=== PATIENT | female | born 1945 | race Caucasian/White ===

== ENCOUNTER → 2019-06-01 12:33 | Outpatient (CLI) | payer MEDICARE, SELFPAY ==
--- NOTE | 2019-06-01 12:37 | RAD_ITS ---
STUDY: SWALLOWING STUDY REASON FOR EXAM: Female, 73 years old. Dysphagia TECHNIQUE: The examination was performed with Speech Pathology in attendance. Under fluoroscopic observation, the patient ingested thin barium, thick barium, barium pudding, and barium coated cracker. FLUOROSCOPY TIME: 1:31 minutes/seconds RADIOLOGIST INVOLVEMENT: Radiologist was present and providing direct supervision. COMPARISON: None. FINDINGS: The following was observed during swallowing of the various mixtures of barium: There is thickening of the cricopharyngeus muscle. Thin Barium: There was no evidence of aspiration or laryngeal penetration. Barium Pudding: There was no evidence of aspiration or laryngeal penetration. Barium Coated Cracker: There was no evidence of aspiration or laryngeal penetration. RAD/Swallowing Function w/Video IMPRESSION: Normal tailored barium swallow study. No evidence of increased risk for aspiration. Thickening of the cricopharyngeus muscle. The swallow study findings were discussed with the patient by the speech pathologist at the conclusion of the examination. Please see speech pathology report for more information and recommendations. Electronically Signed: Kong Fischer, at 13:50 EST , Service support ,
--- NOTE | 2019-06-01 12:50 | SP.MBSS_ITS ---
PRIMARY / SECONDARY DIAGNOSIS: dysphagia (R13.10) REFERRING PHYSICIAN: Yvonne Florentino CNP CURRENT DIET: regular textures, thin liquids DENTITION: WFL MENTAL STATUS: WNL RESPIRATORY STATUS: O2 via room air REASON FOR REFERRAL: The Patient is a 73 year old female referred for a modified barium swallow (MBS) study to objectively assess the Patients oropharyngeal swallow function under fluoroscopy secondary to reported intermittent globus sensation with solid textures occurring over the past few months. MEDICAL HISTORY: Rheumatoid arthritis. No further medical history / complications reported. PREVIOUS MODIFIED BARIUM SWALLOW STUDY: None ASSESSMENT PARAMETERS: The Patient participated in a Modified Barium Swallow (MBS) study on 06/01/2019. Dr. Fischer was the radiologist present for this evaluation. This study was recorded in the lateral view and images were sent to PACs for storage. Scoring was completed through each trial using the 8-point Penetration-Aspiration Scale (PAS) and the Videofluoroscopic Scale Score (VSS), and summarized via the Modified Barium Swallow Impairment Profile (MBSImP), the Bolus Residue Scale (BRS), and the NIH Swallowing Safety Scale (NIH-SSS), with severity scoring through the Dysphagia Severity Rating Scale (DSRS) and the Swallowing Performance Scale (SPS), and recommended diet textures through the International Dysphagia Diet Standardisation Initiative (IDDSI). RESULTS OF THE EVALUATION: The Patient presents with mastication and deglutition abilities found to be grossly within functional limits (DSRS: 1; SPS: 2) OBJECTIVE ASSESSMENT OF SWALLOW FUNCTION (QUANTITATIVE ? PER TRIAL): PENETRATION / ASPIRATION SCALE (ALLEN): 1 = does not enter airway 2 = enters airway/above vocal folds/ejected 3 = enters airway/above vocal folds/not ejected 4 = enters airway/contacts vocal folds/ejected 5 = enters airway/contacts vocal folds/not ejected 6 = enters airway/below vocal folds/ejected 7 = enters airway/below vocal folds/not ejected despite effort 8 = enters airway/below vocal folds/no effort PENETRATION / ASPIRATION SCALE (SCORE): Thin liquids via cup (single sip): 1 Thin liquids via cup (single sip): 1 Thin liquids via cup (single sip): 1 Thin liquids via straw (single sip): 1 Thin liquids via straw (sequential swallows): 1 Pudding via spoon: 1 Regular textured cookie: 1 Thin liquids via straw (single sip): 1 OBJECTIVE ASSESSMENT OF SWALLOW FUNCTION (QUANTITATIVE ? AGGREGATE): MODIFIED BARIUM SWALLOW IMPAIRMENT PROFILE (MBSImP) LABIAL SEAL: 0 (of 4) no labial escape TONGUE CONTROL: 0 (of 3) cohesive bolus BOLUS PREPARATION / MASTICATION: 0 (of 3) timely and efficient BOLUS TRANSPORT / LINGUAL MOTION: 3 (of 4) disorganized motion ORAL RESIDUE: 2 (of 4) residue collection on oral structures INITIATION OF PHARYNGEAL SWALLOW: 0 (of 4) posterior angle of ramus SOFT PALATE ELEVATION: 0 (of 4) no bolus between soft palate & pharyngeal wall LARYNGEAL ELEVATION: 1 (of 3) partial superior movement / approximation ANTERIOR HYOID EXCURSION: 1 (of 2) partial movement EPIGLOTTIC MOVEMENT: 0 (of 2) complete inversion LARYNGEAL VESTIBULE CLOSURE: 0 (of 2) complete closure PHARYNGEAL STRIPPING WAVE: 1 (of 2) present / diminished PE SEGMENT OPENIN (of 3) partial distension / duration TONGUE BASE RETRACTION: 2 (of 4) narrow column of contrast PHARYNGEAL RESIDUE: 2 (of 4) collection of residue ESOPHAGEAL BOLUS CLEARANCE: could not view NIH SWALLOWING SAFETY SCALE (NIH-SSS): RESIDUE IN THE VALLECULA: 1 (present) PENETRATION INTO VESTIBULE FROM HYPOPHARYNX: 0 (absent) RESIDUE IN THE PYRIFORM: 0 (absent) BACKUP PENETRATION FROM PYRIFORM INTO LARYNGEAL VESTIBULE: 0 (absent) ENTRY INTO THE UPPER ESOPHAGUS: 0 (100% entry) ASPIRATION: 0 (absent) BOLUS RESIDUE SCALE (BRS): 2 (of 6) residue in valleculae OBJECTIVE ASSESSMENT OF SWALLOW FUNCTION (SEVERITY GRADING): DYSPHAGIA SEVERITY RATING SCALE (DSRS): 1 (within functional limits) SWALLOWING PERFORMANCE SCALE (SPS): 2 (within functional limits) OBJECTIVE ASSESSMENT OF SWALLOW FUNCTION (QUALITATIVE): ORAL PREPARATORY PHASE: competent bolus manipulation without fragmented swallowing (piecemeal deglutition); sufficient anterior oral containment during oral manipulation; preserved management of breathing / bolus formation without disrupted E ? S ? E pattern ORAL TRANSITIONAL PHASE: somewhat initial discoordinated lingual movements with pudding textures likely associated with persistent xerostomia, otherwise sufficient bolus transportation; sufficient oral clearance; sufficient oral containment across textures; no presence of premature posterior bolus loss. PHARYNGEAL PHASE: inconsistent, though overall appropriate hyolaryngeal excursion and laryngeal vestibule closure / pressure; no signs of pharyngeal dysmotility; no signs of velopharyngeal impairments; no penetration / aspiration throughout trials. ESOPHAGEAL PHASE: no obvious esophageal phase abnormalities observed. 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 RESPONSE TO STRATEGIES: deficits managed successfully with execution of a liquid chaser. INTERVENTION RECOMMENDATIONS AND CONSIDERATIONS: The Patient presents with mastication and deglutition abilities found to be grossly within functional limits. No further skilled speech-language intervention is warranted at this time. POST ASSESSMENT EDUCATION: Results and recommendations were discussed with the Patient immediately following MBS completion, with the Patient verbalizing understanding and agreement with all recommendations and education provided. DIET TEXTURE RECOMMENDATIONS: Will recommend a regular textured (IDDSI: 7), thin liquid diet (IDDSI: 0) diet RECOMMENDED COMPENSATORY STRATEGIES: Consider cutting tougher textures into bite sized pieces, liquid chaser at reasonable intervals, seated upright at 90 degrees during PO intake, remain upright for 30-60 minutes post meal (GERD precaution) IMAGE COUNT: [id number] Camron Watkins M.A., CCC-BATCH OR CONTINUOUS STILL OPERATOR, CBIS MBSImP Certified, LSVT Certified [facility] Speech-Language Pathology Department [email or web address]
== END ==
DX: R13.10 Dysphagia, unspecified (principal)
CPT/HCPCS: 74230; 92611

== ENCOUNTER → 2022-07-11 | Outpatient (CLI) | payer MEDICARE, SELFPAY ==
--- NOTE | 2022-07-11 | VUL_PTH ---
PATIENT: NA ENRIQUEZ LOC: [facility] U#:[id number] AGE/SX: 76/F ROOM: RE07/11/[address]: Dr. Dimitri Bonilla MD : 1945 BED: DIS: 07/11/2022 SPEC #: [id number] RECD: 07/11/22 13:25 STATUS: MATTI DAO #: [id number] JERRY: 07/11/22 00:[address]: Dimitri Bonilla DEPT: SURGICAL PATHOLOGY RECD BY: Liz Winston Tissues: Vulva, NOS Procedures: Surgery Specimen Level IV HEADER OPERATION: Vulvar biopsy PRE-OP DIAGNOSIS: Vulvar plaque TISSUE SUBMITTED: Vulvar biopsy MICROSCOPIC DIAGNOSIS Vulvar biopsy: Minute fragments of squamous epithelium with extensive hyperkeratosis and parakeratosis. Negative for dysplasia/malignancy. See comment. JACEK:shawn 07/12/2022 COMMENT Subepithelial tissue is not seen. If there is high suspicion of dysplasia/malignancy, re-biopsy is suggested if clinically indicated. MICROSCOPIC DESCRIPTION Slides are reviewed. GROSS DESCRIPTION Received is one container labeled with the patient's name and not further designated. The specimen consists of three minute fragments of marie soft tissue measuring in aggregate 0.4 x 0.1 x 0.1 cm. The entire specimen is submitted in one cassette. / SJ:rg 07/11/2022 :5 [facility]: [id number]
== END | disposition home or self-care (01) ==
PROVIDERS: Visit Provider Obstetrics & Gynecology
DX: N89.8 Other specified noninflammatory disorders of vagina (principal)
CPT/HCPCS: 88305

== ENCOUNTER 2024-02-03 15:18 | Emergency (ER) | payer MEDICARE, SELFPAY ==
[2024-02-03 15:19] VITALS: BP 180/90; PULSE 80; RESP 16; TEMP 36.2; O2SAT 99; BMI 17.9
[2024-02-03 17:19] VITALS: BP 166/77; PULSE 80; RESP 17; O2SAT 98
--- NOTE | 2024-02-03 17:46 | EKG12_ITS ---
Test Reason : Blood Pressure : / mmHG Vent. Rate : 073 BPM Atrial Rate : 073 BPM P-R Int : 166 ms QRS Dur : 082 ms QT Int : 422 ms P-R-T Axes : 069 066 066 degrees QTc Int : 464 ms Normal sinus rhythm Nonspecific ST and T wave abnormality Abnormal ECG Confirmed by HARPAL WOLFE, LIA ([id number]), news videotape editor FREDDIE KAM ([id number]) on 02/04/2024 7:42:51 AM Referred By: Confirmed By:LIA ROWAN MD
--- NOTE | 2024-02-03 17:47 | EDS_ITS ---
HPI History of Present Illness Chief Complaint: Syncope Informant: patient Narrative Narrative: 78-year-old female presents because she has been feeling lightheaded today. She states she was standing in her kitchen gathering apples when she started feeling lightheaded, not vertiginous, and had no other symptoms. She felt like she was going to pass out so she went lay down and stayed there for about an hour. This helped. Upon getting up, she felt like she was tingling in all 4 extremities distally at the same time. That is better now, it is gone in her legs and she just feels it in her hands some, and still feels a little lightheaded but not near syncopal right now nor does she feel vertiginous. However she has had disequilibrium intermittently since July without sheldon vertiginous symptoms. When discussing this and lightheadedness she today she felt like she was going to faint and did not feel the disequilibrium. She had no other prodromal symptoms such as palpitations, chest discomfort, dyspnea, headache, focal neurologic symptoms. She also has had several surgeries this past year for right-sided retinal detachment. [facility] Medical History (Updated 02/03/24 @ 20:[address] Brooks Amado MD) Retinal detachment Hyperlipidemia Home Medications ?Medication ?Instructions ?Recorded ?Last Taken ?Type meclizine 25 mg tablet 25 mg PO Q8H PRN PRN Dizziness #20 02/03/24 Unknown Rx tabs Allergy/AdvReac Type Severity Reaction Status Date / Time amoxicillin Allergy Intermediate Rash Verified 02/03/24 15:21 Social History Smoking Status: Never smoker ROS ROS ED Constitutional Constitutional ED: Denies chills or fever(s) Eyes Eyes: Denies change in vision or eye pain ENT ENT ED: Reports as per HPI, disequillibrium and other Details: Hard of hearing uses hearing aids ; Denies rhinorrhea, sore throat or tinnitus Cardiovascular Cardiovascular: Reports lightheadedness; Denies chest pain, palpitations or syncope Respiratory/Chest Respiratory/Chest: Denies cough or dyspnea Gastrointestinal Gastrointestinal: Denies abdominal pain, diarrhea, nausea or vomiting Genitourinary Genitourinary ED: Denies dysuria or hematuria Musculoskeletal Musculoskeletal: Denies back pain or neck pain Integumentary Denies abscess or rash Neurologic Neurologic: Denies headache(s), paresthesias or weakness Psychiatric Psychiatric: Denies anxiety or suicidal thoughts EXAM Physical Exam Const Vital Signs: 02/03/24 15:19 02/03/24 17:19 02/03/24 18:14 Temperature 97.2 F L Temperature Source Temporal Pulse Rate 80 80 Respiratory Rate 16 17 Respiratory Effort Normal Respiratory Pattern Normal Blood Pressure 180/90 H 166/77 H Blood Pressure Mean 120 106 Pulse Ox 99 98 Oxygen Delivery Method Room Air Room Air 02/03/24 19:00 Temperature Temperature Source Pulse Rate 75 Respiratory Rate 18 Respiratory Effort Respiratory Pattern Blood Pressure 151/75 H Blood Pressure Mean 100 Pulse Ox 98 Oxygen Delivery Method Room Air Positive well nourished and well developed General Appearance ED: well developed and NAD HEENT Reports moist mucous membranes normocephalic and atraumatic Eyes EOMs intact bilaterally Eyes Narrative: Right pupil dilated anisocoria Neck full ROM and supple Resp normal respiratory effort and clear to auscultation bilaterally Cardio Rhythm: abnormal rhythm irregularly irregular (Without tachycardia) GI non-tender and non-distended Auscultation: normoactive bowel sounds Palpation: soft Back/Spine no CVA tenderness General Back: other FROM Extremity normal to inspection General Extremety ED: Negative for edema, pulses abnormal or tenderness General Extremity: Negative for edema or pulses abnormal Neuro oriented x3, CN's II-XII intact bilaterally and no sensory deficits noted Neuro Narrative: Able to stand without difficulty says she feels lightheaded Sensorium / Orientation: awake and alert Motor Exam: strength 5/5 throughout Psych mental status grossly normal Skin no rashes or lesions noted and no wounds MDM MDM MDM Narrative Medical decision making narrative: Patient has a log of blood pressures some of which are orthostatics, with a sitting blood pressure in the standing. With the log that she shows here, orthostatics are essentially negative every day that she has tested them. She states that her doctor did them in the office and they were abnormal but they were done for unknown reason, not feeling lightheaded or near syncopal like she presents today. She states she drink water this morning but has not had any thing since. Denies any recent illness to suggest dehydration. While working her up she was given some IV fluids here. Afterwards she was walking to the bathroom to give a urine sample she feels no near syncope or lightheadedness anymore. She states she still feels a little tilty suggesting she has the disequilibrium that she has had off-and-on chronically. She has never tried meclizine for that, I am going to give her a prescription for it she declines a dose here, and since the fluids helped her lightheadedness I suspect it was probably mild dehydration, she is advised to follow-up with her doctor as an outpatient she is comfortable with that plan. Lab Data Attestation: I reviewed the patient's lab results. Labs: Laboratory Results - last 24 hr 02/03/24 02/03/24 18:05 19:16 WBC 3.8 L RBC 4.14 L Hgb 13.1 Hct 41.0 MCV 99.0 MCH 31.6 MCHC 32.0 RDW Std Deviation 47.9 H RDW Coeff of Mode 13.2 Plt Count 223 MPV 9.7 Immature Gran % (Auto) 0.300 Neut % (Auto) 66.9 Lymph % (Auto) 20.3 [place] % (Auto) 10.2 H Eos % (Auto) 1.8 Baso % (Auto) 0.5 Absolute Neuts (auto) 2.6 Absolute Lymphs (auto) 0.78 L Nucleated RBC % 0 Sodium 137 Potassium 4.2 Chloride 103 Carbon Dioxide 28.0 Anion Gap 6 BUN 13 Creatinine 0.59 Estim Creat Clear Calc 40.59 Est GFR (MDRD) Af Amer 127 Est GFR (MDRD) Non-Af 105 BUN/Creatinine Ratio 22.1 H Glucose 117 H Calcium 10.0 Troponin I High Sens 6 Urine Color Yellow Urine Clarity Sl. Cloudy Urine pH 7.0 Ur Specific Scenic 1.005 Urine Protein Negative Urine Glucose (UA) Normal Urine Ketones Negative Urine Occult Blood 25 H Urine Nitrite Negative Urine Bilirubin Negative Urine Urobilinogen Normal Ur Leukocyte Esterase Negative Urine RBC 0-5 SEEN Urine WBC 0 SEEN Ur Squamous Epith Cells 0-5 SEEN Amorphous Sediment 1+ PHOS Urine Bacteria 0 SEEN Urine Mucus 0 SEEN Rhythm Strip Rhythm Strip: Sinus Rhythm Rate: 73 Ectopy: None EKG Initial EKG: Attestation: I personally reviewed and interpreted this EKG as follows: Interpretation: Sinus Rhythm, No Acute Injury Pattern and Non-Specific ST Changes Discharge Plan Triage Chief Complaint: Syncope ED Provider: Brooks Amado Dx/Rx/DC Orders Clinical Impression: Mild dehydration, Light-headedness, Dysequilibrium Instructions: ED Dizziness, Uncertain Cause, ED Near-Fainting, Uncertain Cause Prescriptions: New meclizine 25 mg tablet 25 mg PO Q8H PRN PRN (Reason: Dizziness) Qty: 20 0RF Primary Care Provider: Hospital,[facility] Referrals: Doctor,Your [Non-Staff] - As soon as possible Print Language: [place] Disposition Disposition: Home, Self Care
[2024-02-03] MEDS: 0.9% Normal Saline (1000mL) 1,000 ML 1000 ML IV (18:10)
[2024-02-03 18:13] LABS: Absolute Lymphocyte Count 0.78 X10^3/uL (0.83-4.51); Absolute Neutrophil Count 2.6 X10^3/uL (2.0-7.7); Basophil# 0.02 X10^3/uL; Basophil% 0.5 % (0-1); Eosinophil# 0.07 X10^3/uL; Eosinophils% 1.8 % (0-5); Hemoglobin 13.1 g/dL (12.0-15.0); Lymphocyte # 0.78 X10^3/ul (0.83-4.51); Lymphocyte % 20.3 % (19-41); Mean Corpuscular Hgb 31.6 pg (27.0-32.0); Mean Platelet Vol. 9.7 fl (6.2-12.0); Monocyte# 0.39 X10^3/uL; Monocyte% 10.2 % (0-10); NRBC Flagged by Analyzer 0 % (0-5); Neutrophil # 2.57 X10^3/uL (2.7-7.7); Neutrophil % 66.9 % (47-70); Platelet Count 223 K/mm3 (150-450); RBC Distribution Width CV 13.2 % (11.6-14.6); RBC Distribution Width SD 47.9 fl (35.1-43.9); Red Blood Count 4.14 M/mm3 (4.2-5.4); White Blood Count 3.8 K/mm3 (4.4-11.0)
[2024-02-03 18:55] LABS: Anion Gap 6 (5-15); BUN 13 mg/dL (7-18); BUN/Creat Ratio 22.1 RATIO (10-20); Chloride 103 mmol/L (98-107); Creatinine, Serum 0.59 mg/dL (0.55-1.02); EST Glomerular Filtration Rate 105 mL/min (>60); Est Glom Filt Rate - Afr Amer 127 mL/min (>60); Estimated Creatinine Clearance 40.59 ml/min; Glucose 117 mg/dL (74-106); Potassium 4.2 mmol/L (3.5-5.1); Sodium Level 137 mmol/L (136-145); Troponin-I HS 6 pg/mL (3.0-54.0)
[2024-02-03 19:00] VITALS: BP 151/75; PULSE 75; RESP 18; O2SAT 98
[2024-02-03 19:26] LABS: Bacteria 0 SEEN /hpf (None Seen); Mucous, Urine 0 SEEN /hpf (<or=2+); White Blood Cells 0 SEEN /hpf (0-5)
[2024-02-03 19:42] LABS: Color, Urine Yellow (Yellow); Glucose, Dipstick Normal (Normal); Ketone-Dipstick Negative (Negative); Leukocyte Esterase-Dipstick Negative /ul (Negative); Nitrite-Dipstick Negative (Negative); Occult Blood-Urine 25 /ul (Negative); Protein-Dipstick Negative (Negative); Specific Gravity, Urine 1.005 (1.002-1.030); Urine Bilirubin Dipstick Negative (Negative); Urine Clarity Sl. Cloudy (Clear); Urine Urobilinogen Normal (Normal)
[2024-02-03 19:55] LABS: Red Blood Cells-Urine 0-5 SEEN /hpf (0-5); Squamous Epithelial Cells - UA 0-5 SEEN /hpf (5-10)
[2024-02-03 19:56] LABS: Amorphous Sediment 1+ PHOS
[2024-02-03 20:56] VITALS: BP 166/86; PULSE 78; RESP 16; TEMP 36.7; O2SAT 96
== END 2024-02-03 20:58 | disposition home or self-care (01) ==
PROVIDERS: Emergency Provider Emergency Medicine; Visit Provider Emergency Medicine
DX: E86.0 Dehydration (principal); R42 Dizziness and giddiness; E78.5 Hyperlipidemia, unspecified
CPT/HCPCS: 80048; 81001; 84484; 85025; 93005; 96360; 96361; 99284; J7030; A4216